=== PATIENT | female | born 1965 | race Caucasian/White ===

== ENCOUNTER 2017-08-31 06:16 | Day surgery (SDC) | payer OTHER ==
[2017-08-26 12:12] VITALS: BMI 22.8
[2017-08-31] MEDS ORDERED: DESFLURANE GAS 240 ML BOTTLE IH ONE (07:22)
[2017-08-31] MEDS ORDERED: GENTAMICIN SO4 80 MG/2 ML VIAL ONE (07:37)
[2017-08-31] MEDS ORDERED: ceFAZolin SODIUM 1 GM VIAL ONE ×3 (07:37→12:06)
[2017-08-31] MEDS ORDERED: fentaNYL CITRATE 250 MCG/5 ML VIAL ONE (07:38)
[2017-08-31] MEDS ORDERED: PROPOFOL 20 ML ONE ×3 (07:38)
[2017-08-31] MEDS ORDERED: ROCURONIUM BROMIDE 50 MG/5 ML VIAL ONE (07:39)
[2017-08-31] MEDS ORDERED: MIDAZOLAM HCL 2 MG/2 ML SINGLE DOSE VIAL ONE (07:39)
[2017-08-31] MEDS ORDERED: LIDOCAINE HCL 1%, 10 MG/ML (20ML VIAL) ONE (07:41)
[2017-08-31] MEDS ORDERED: EPINEPHrine/PF 1 MG/1 ML (1:1,000) AMPULE ONE (07:41)
[2017-08-31] MEDS ORDERED: HALOPERIDOL LACTATE 5 MG/ML ONE (08:07)
[2017-08-31] MEDS ORDERED: OXYMETAZOLINE 0.05% NASAL SOLUTION 15 ML BOTTLE NS ONE (08:09)
[2017-08-31] MEDS ORDERED: LIDOCAINE 1%/EPI 1:100000 (20 ML MULTI DOSE VIAL) ONE ×4 (08:46→10:42)
[2017-08-31] MEDS ORDERED: LIDOCAINE 1%/EPI 1:100000 (50 ML MULTI DOSE VIAL) INF ONE (08:50)
[2017-08-31] MEDS ORDERED: ePHEDrine SULFATE 50 MG/1 ML AMPULE ONE (10:08)
[2017-08-31] MEDS ORDERED: DEXAMETHASONE SOD PHOSPHATE 4 MG/1 ML VIAL ONE (10:08)
[2017-08-31] MEDS ORDERED: ONDANSETRON 4 MG/2 ML VIAL ONE (10:08)
[2017-08-31] MEDS ORDERED: LIDOCAINE HCL 2% JELLY (5 ML/TUBE) ONE (10:08)
[2017-08-31] MEDS ORDERED: MINERAL OIL 25 ML OIL ONE (12:06)
[2017-08-31] MEDS ORDERED: NEOSTIGMINE METHYLSULFATE 0.5 MG/ML - 10 ML MDV ONE (12:09)
[2017-08-31] MEDS ORDERED: GLYCOPYRROLATE 0.2 MG/1 ML VIAL ONE (12:11)
[2017-08-31] MEDS ORDERED: ESMOLOL HCL 100,000 MCG/10 ML VIAL ONE (12:11)
[2017-08-31] MEDS ORDERED: BACITRACIN 15 GM TUBE TOPICAL OINTMENT ONE (12:25)
[2017-08-31] MEDS ORDERED: BACITRACIN 3.5 GM OPTHALMIC OINT TUBE ONE (12:26)
[2017-08-31] MEDS ORDERED: BACITRACIN 3.5 GM OPTHALMIC OINT TUBE OU ONE (12:40)
[2017-08-31] MEDS ORDERED: PROMETHAZINE HCL 25 MG/1 ML VIAL IVPUSH PRN (12:54)
[2017-08-31] MEDS ORDERED: ONDANSETRON 4 MG/2 ML VIAL IVPUSH PRN (12:54)
[2017-08-31] MEDS ORDERED: ONDANSETRON 4 MG/2 ML VIAL IVPUSH ONE (13:41)
[2017-08-31] MEDS ORDERED: ALPRAZolam 0.25 MG TABLET PO PRN (18:05)
[2017-08-31] MEDS ORDERED: ALPRAZolam 0.25 MG TABLET PO ONE (18:20)
[2017-08-31 18:35] VITALS: TEMP 98.2
[2017-08-31] MEDS ORDERED: KETOROLAC TROMETHAMINE 30 MG/1 ML VIAL IVPUSH PRN (19:57)
[2017-08-31] MEDS: ARTIFICIAL TEARS (POLYVINYL ALCOHOL 1.4%) OPTH DROPS OU SCH ×2 (20:00→22:00)
[2017-08-31] MEDS ORDERED: HYDROmorphone HCL CARPU-JECT 2 MG/1 ML DISP.SYRIN IVPB ONE (20:15)
[2017-08-31] MEDS ORDERED: PREDNISONE PO ONE (21:45)
[2017-08-31] MEDS ORDERED: predniSONE 1 MG TABLET (FP) ONE (22:35)
[2017-08-31] MEDS ORDERED: predniSONE 20 MG TABLET (UD) ONE (22:35)
[2017-09-01] MEDS: ARTIFICIAL TEARS (POLYVINYL ALCOHOL 1.4%) OPTH DROPS OU SCH ×4 (02:00→05:13)
[2017-09-01 06:14] VITALS: BP 99/72; PULSE 73
--- NOTE | 2017-09-01 08:11 | PN ---
Progress Note (short form) - Note Progress Note: 52 yo female. POD#1. Doing well. Pain adequately controlled. Encouraged PO, ambulation and IS.
--- NOTE | 2017-09-01 08:58 | OP ---
DATE OF OPERATION: 08/31/2017 SURGEON: Yogi Hooks MD DIALYSIS CLINICAL MANAGER SURGEON: Sarahy Rangel PA-C PREOPERATIVE DIAGNOSES: 1. Bilateral acquired chest wall deformity status post bilateral mastectomy. 2. Personal history of breast carcinoma. 3. Acquired chest wall deformity with asymmetry. 4. Mechanical complication of breast implant. 5. Capsular contracture of breasts. POSTOPERATIVE DIAGNOSES: 1. Bilateral acquired chest wall deformity status post bilateral mastectomy. 2. Personal history of breast carcinoma. 3. Acquired chest wall deformity with asymmetry. 4. Mechanical complication of breast implant. 5. Capsular contracture of breasts. OPERATIVE PROCEDURE: 1. Right breast reconstruction utilizing other technique. 2. Left breast reconstruction utilizing other technique. 3. Capsulectomy, removal and replacement of right breast implant. OPERATIVE INDICATION: Patient is a young woman who underwent bilateral mastectomy for breast cancer and now presents with pain, discomfort, and contracture of the right reconstructed breast with asymmetry, malposition of the implant, and inability to do her daily functions because of the discomfort. The examination revealed the above indications for the procedure, and she agreed to the planned procedure. The risks and benefits of surgical versus nonsurgical alternatives as well as the material complications were described to the patient on multiple occasions preoperatively. She agreed to the planned procedure. The questions were asked and answered. She was marked in the holding area in the standing position for outline of the procedure. OPERATIVE PROCEDURE IN DETAIL: Patient was taken to the operating room, and after induction of general anesthesia in the supine position, both arms were extended and padded. Venodyne boots were placed. At this point, attention was turned to the mastectomy scars. After prepping and draping and timeout, the mastectomy scars were injected with 1% local lidocaine anesthesia, 1:100,000 epinephrine. The area of the abdomen and flanks was also prepped for harvest of reconstructive tissue. At this point, an incision was made down through the mastectomy scar on the right breast, through the subcutaneous tissue, down to the underlying capsule of the implant. The capsule was seen to be thickened and malpositioned with a superior effect. I then incised the capsule with the electrocautery, through the subcutaneous tissue, down to the underlying implant, and the underlying malpositioned implant was removed and sent for pathologic diagnosis. At this point, a full examination of the capsule was seen. Thready material from previous acellular dermal matrix was seen throughout the capsule, but no significant surface was identified. At this point, a capsulectomy, removing portions of the thickened capsule, was carried out over the entire extent of the pocket itself in the superior, medial, and inferior portions and especially in the medial side, elevating the tissues to accept the new device for reconstruction. Attention was then turned to the left breast. An incision was made down through the skin, through the mastectomy scar, into the deep tissue over the pectoralis major muscle and then, spaces created for reconstruction with other technique. Incisions were made in the lateral flank area for reconstructive purposes. This was carried down through the skin to the subcutaneous tissue, through the subcutaneous tissue, down to the underlying rectus muscles. Laterally, the external oblique muscle was also encountered, and then, dissection of subcutaneous tissue for reconstructive purpose was carried out. The tissue was transferred to the back table, cleansed, prepared, and readied for reconstructive purposes. At this point, multiple sizers were then placed into the right breast pocket to approximate the reconstructed volume. Ultimately, an implant was chosen of the volume of [employer] Inspira Soft Touch breast implant style SSF 385-mL volume. This was placed into the subpectoral pocket and copiously irrigated with triple-antibiotic solution throughout. The reconstructive tissue was then transferred to the right breast, into the superior, medial, central, and lateral portions of the right breast, and then, separately, tissue was transferred to the left breast in the superior, medial portions of the left breast. The wound was then advanced and closed upon itself in the re breast using 2-0 PDS suture on the deep tissue. The layers were brought down and approximated over the reconstructive implant to close the pocket in watertight fashion. Multiple layers were also closed using 3-0 PDS suture in deep tissue, 3-0 Biosyn in the subcuticular tissue, and a running subcuticular 4-0 suture with Monocryl. The left breast was closed with interrupted and running sutures, and good symmetry was seen in the sitting position. The donor sites were then advanced and closed upon themselves using interrupted and running sutures. All wounds were dressed sterilely. She was awakened, extubated, and transferred to the recovery room in satisfactory condition. Luis A [id number]
--- NOTE | 2017-09-01 09:41 | OP ---
DATE OF OPERATION: 08/31/2017 This is a separate report and should be dictated under a separate cover. This is a secondary procedure at the same time for the date of service of August 31, 2017. SURGEON: Mary Hooks MD SURVEILLANCE MANAGER SURGEON: Sarahy Rangel PA-C PREOPERATIVE DIAGNOSES: 1. Aging face deformity. 2. Blepharochalasis. 3. Fatty face deformity. OPERATIVE PROCEDURE: 1. Bilateral upper and lower lid blepharoplasty. 2. Removal of bilateral buccal fat pads. 3. Suction-assisted lipectomy of neck and jaw. POSTOPERATIVE DIAGNOSES: 1. Aging face deformity. 2. Blepharochalasis. 3. Fatty face deformity. OPERATIVE PROCEDURE IN DETAIL: This is a combined procedure with previous dictated operative report. The risks and benefits of surgical versus nonsurgical alternatives as well as material complications of the procedure were described to the patient on multiple occasions. She agreed to the planned procedure in combination with reconstructive procedure. Patient was taken to the operating room, and after induction of general anesthesia in supine position and after completion of the previous breast surgery, attention was turned to the face. The face had been previously prepped and draped in the usual fashion for facial cosmetic surgery. The eyelids, neck, and jaw line were marked in a standing and sitting position preoperatively. At this point, 1% local lidocaine anesthesia, 1:100,000 epinephrine was injected into the eyelids in the usual fashion for upper and lower blepharoplasty, as well as in the buccal cheek area just anterior to the parotid duct opening into the mouth at the molar area bilaterally. The neck was also infiltrated with a dilute epinephrine solution for suction-assisted lipectomy. At this point, the procedure was begun after local anesthesia in the mouth. Using the lighted retractor and direct vision, a small, 1.5-cm incision was made just anterior to the duct in the lateral cheek. Dissection was carried through the mucosa and down to the underlying buccal fat pad. The buccal fat pad was then teased from the wound itself, removing a small portion of the buccal fat pad and leaving the remaining portion in vivo. This was cauterized using the electrocautery throughout. All hemostasis was obtained throughout the procedure. The wound was then closed with interrupted 4-0 chromic sutures, and the opposite side was attended to, on the right side. The exact same procedure was carried out, symmetrically removing similar volumes of buccal fat pad from the right cheek, and again, hemostasis meticulously obtained and sutured using 4-0 chromic sutures. Attention was then turned to the eyelids. An excision of the skin of the upper eyelids according to the pattern was carried out, also excising orbicularis muscle. Hemostasis was meticulously obtained throughout, and the wound was closed with running 5-0 Prolene sutures in subcuticular fashion. The lower lids were attended to, and pinch blepharoplasty was carried out on the lower eyelid in the subciliary margin. This pinch was excised using the curved sharp scissors, and then, dissection was carried through the orbicularis muscle, down to the underlying fat pads. The fat pads were then removed and cauterized using the bipolar electrocautery, and good shape and contour were seen both in the right and left lower eyelids as they were done symmetrically. Again, hemostasis was obtained meticulously, and the lids were closed with the usual 5-0 silk sutures in interrupted fashion. At this point, suction-assisted lipectomy was carried out over the entire anterior neck region including the jaw line. Approximately 30 mL of fatty material was removed from all areas symmetrically. Good shape and contour were seen in the sitting and lying position with head turned on both sides. The chin stab incision and preauricular sutures were closed with 5-0 plain catgut sutures, and the patient was placed into a circumferential head dressing with fluff, cotton roll, Luis, and Coban dressing. She was awakened, extubated, and transferred to the recovery room in satisfactory condition. She had ice placed on her upper and lower eyelids and tolerated the procedure well. MARY HOOKS M.D. [id number]
--- NOTE | 2017-09-01 11:49 | PATH ---
Surgical Pathology Report Patient Name: MEMO HUA Med. Rec. #: [id number] /Age/Gender: 1965 (Age: 52) / F Account: [id number] Location: [facility] AMBULATORY Taken: 08/31/2017 Received: 08/31/2017 Reported: 09/01/2017 Physicians: Harrison Hooks Specimen(s) Received A: RIGHT BREAST CAPSULE B: RIGHT BREAST IMPLANT Clinical History History of breast cancer Final Diagnosis A. SOFT TISSUE, RIGHT BREAST, EXCISION: FIBROMEMBRANOUS TISSUE CONSISTENT WITH BREAST IMPLANT CAPSULE, WITH ASSOCIATED SUTURE GRANULOMA AND SCANT SKELETAL MUSCLE. B. CALF SKINNER, RIGHT BREAST, REMOVAL: BREAST IMPLANT (GROSS ONLY). Electronically Signed Hever Lowe M.D. Gross Description A. Received in formalin labeled "right breast capsule," is a 6.8 x 2.5 x 0.3 cm aggregate of ace-pink, irregular portions of firm fibrotic tissue with attached suture material, consistent with a breast capsule. No discrete masses are identified. Molasses Coloring Operator sections are submitted in one cassette. B. Received fresh labeled "right breast implant," is 11.5 cm diameter x 4.5 cm in depth clear, rubbery breast implant. No soft tissue is present. No sections are submitted, gross only. 08/31/201708/31/2017
== END 2017-09-01 09:50 | disposition home or self-care (01) ==
LOC: FASU 06:16 → FM/S 19:48 → FASU 09-01 09:50
PROVIDERS: ATTEND Plastic Surgery
PROC: 0J053ZZ Alteration of Left Neck Subcutaneous Tissue and Fascia, Percutaneous Approach (ICD-10-PCS; 2017-08-31)
PROC: 0J043ZZ Alteration of Right Neck Subcutaneous Tissue and Fascia, Percutaneous Approach (ICD-10-PCS; 2017-08-31)
PROC: 0HPT0JZ Removal of Synthetic Substitute from Right Breast, Open Approach (ICD-10-PCS; principal; 2017-08-31 08:14)
PROC: 0HRT0JZ Replacement of Right Breast with Synthetic Substitute, Open Approach (ICD-10-PCS; 2017-08-31 08:14)
PROC: 0HRV07Z Replacement of Bilateral Breast with Autologous Tissue Substitute, Open Approach (ICD-10-PCS; 2017-08-31 08:14)
PROC: 0W020ZZ Alteration of Face, Open Approach (ICD-10-PCS; 2017-08-31 08:14)
DX: M95.4 Acquired deformity of chest and rib (principal); Z90.13 Acquired absence of bilateral breasts and nipples; Z85.3 Personal history of malignant neoplasm of breast; N65.1 Disproportion of reconstructed breast; T85.41XA Breakdown (mechanical) of breast prosthesis and implant, initial encounter; T85.44XA Capsular contracture of breast implant, initial encounter; L98.8 Other specified disorders of the skin and subcutaneous tissue; H02.35 Blepharochalasis left lower eyelid; H02.34 Blepharochalasis left upper eyelid; H02.31 Blepharochalasis right upper eyelid; H02.32 Blepharochalasis right lower eyelid; E65 Localized adiposity; L98.7 Excessive and redundant skin and subcutaneous tissue; Y82.8 Other medical devices associated with adverse incidents; Y92.9 Unspecified place or not applicable; Y83.9 Surgical procedure, unspecified as the cause of abnormal reaction of the patient, or of later complication, without mention of misadventure at the time of the procedure
CPT/HCPCS: 88300-TC; 88307-TC; 94760